=== PATIENT | female | born 1955 | race African-American/Black ===

== ENCOUNTER 2020-09-28 10:46 | Emergency (ER) | payer OTHER ==
[~2020-09-28] VITALS: Ht 152.4 cm; Wt 74.6 kg
[2020-09-28] MEDS ORDERED: METOPROLOL TART50 MG PO (11:14)
[2020-09-28] MEDS ORDERED: POTASSIUM CHLO10 ME1 PO (11:14)
[2020-09-28] MEDS ORDERED: HYDROCHLOROTHIA25 MG PO (11:14)
[2020-09-28] MEDS ORDERED: AMLODIPINE BESY10 MG PO (11:14)
[2020-09-28] MEDS ORDERED: ONDANSETRON HCL INJ 2MG/ML 2ML 2 MG/ML VIAL IV STA (11:35)
[2020-09-28] MEDS ORDERED: KETOROLAC TROMETHAMINE 30 MG/ML VIAL IV STA (11:35)
[2020-09-28] MEDS ORDERED: POTASSIUM CHLORIDE 20 MEQ TAB CR PO STA (11:35)
[2020-09-28] MEDS ORDERED: SODIUM CHLORIDE 0.9% 1000ML 1,000 ML IV SCH (11:45)
[2020-09-28] MEDS ORDERED: SODIUM CHLORIDE 0.9% 50ML 50 ML ONE (12:14)
[2020-09-28] MEDS ORDERED: IOPAMIDOL 370 MG/ML 200 ML INFUS..BTL INJ ONE (12:15)
[2020-09-28 13:29] VITALS: BP 146/82
== END 2020-09-28 13:26 | disposition home or self-care (01) ==
LOC: FSED 11:16
DX: M54.5 Low back pain (principal); M79.18 Myalgia, other site; E87.6 Hypokalemia; I10 Essential (primary) hypertension
CPT/HCPCS: 74177; 80048; 80076; 81003; 85025; 96374; 96375; 99284; J1885; J2405; J7030; Q9967